=== PATIENT | male | born 2000 | race Caucasian/White ===

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

== ENCOUNTER 2020-03-20 18:52 | Emergency (ER) | payer OTHER ==
[~2020-03-20] VITALS: Ht 193 cm; Wt 177.0 kg
[~2020-03-20 18:52] MED LIST changes: +LOPE-39 PO
[2020-03-20] MEDS ORDERED: CETI-24 (18:58)
[2020-03-20] MEDS ORDERED: SERT50TA29 (18:58)
[2020-03-20] MEDS ORDERED: diphenhydrAMINE 50MG/ML VIAL (J1200) IV STA (19:21)
[2020-03-20] MEDS ORDERED: NS 1,000 ML IV ONE (19:30)
[2020-03-20] MEDS ORDERED: KETOROLAC 30 MG/ML 1ML VIAL IV ONE (19:30)
[2020-03-20] MEDS ORDERED: METOCLOPRAMIDE INJ 10MG/2ML VIAL (J2765 PER 1) IV ONE (19:30)
[2020-03-20 20:00] LABS: BASO % 0.5 % (0.0-1.0); EOS # 0.2 10^3/uL (0.0-0.5); HEMATOCRIT 43.3 % (42.0-52.0); HEMOGLOBIN 14.6 g/dl (13.5-17.5); LYMPH # 1.6 10^3/uL (1.5-5.0); LYMPH % 24.8 % (24.0-44.0); MEAN CORPUSCULAR HEMOGLOBIN 27.5 pg (27.0-33.0); MEAN CORPUSCULAR HGB CONC 33.7 g/dl (32.0-36.5); MEAN CORPUSCULAR VOLUME 81.5 fl (80.0-96.0); MONO # 1.2 10^3/uL (0.0-0.8); NEUTROPHILS # 3.3 10^3/uL (1.5-8.5); NEUTROPHILS % 52.4 % (36.0-66.0); PLATELET COUNT, AUTOMATED 297 10^3/uL (150-450); RED BLOOD COUNT 5.31 10^6/uL (4.30-6.10); WHITE BLOOD COUNT 6.3 10^3/uL (4.0-10.0)
[2020-03-20] MEDS ORDERED: NAPR-837 PO (21:01)
[2020-03-20 21:14] VITALS: BP 122/56
== END 2020-03-20 21:28 | disposition home or self-care (01) ==
LOC: M ED 18:52
DX: R51.9 Headache, unspecified (principal); F17.200 Nicotine dependence, unspecified, uncomplicated; Z79.899 Other long term (current) drug therapy
CPT/HCPCS: 80047; 85025; 96374; 96375; 99284; J1200; J1885; J2765

== ENCOUNTER 2022-05-03 19:47 | Emergency (ER) | payer OTHER ==
[~2022-05-03] VITALS: Ht 190.5 cm; Wt 186.4 kg
[~2022-05-03 19:47] MED LIST changes: +CETI-24; +NAPR-837 PO; +SERT50TA29
[2022-05-03 19:49] VITALS: BP 138/87
== END 2022-05-03 23:21 | disposition left against medical advice (07) ==
LOC: M ED 19:47
DX: Z53.21 Procedure and treatment not carried out due to patient leaving prior to being seen by health care provider (principal)

== ENCOUNTER → 2022-10-02 | Outpatient (REF) | payer MEDICAID, OTHER ==
[2022-10-02 13:52] LABS: ALBUMIN 3.4 G/DL (3.2-5.2); ALKALINE PHOSPHATASE 76 U/L (46-116); ALT/SGPT 23 U/L (7.0-40); AST/SGOT 15 U/L (<34); BILIRUBIN,TOTAL 0.3 MG/DL (0.3-1.2); BLOOD UREA NITROGEN 15 MG/DL (9-23); CALCIUM LEVEL 8.7 MG/DL (8.5-10.1); CARBON DIOXIDE LEVEL 26 MMOL/L (20-31); CHLORIDE LEVEL 108 MMOL/L (98-107); CHOLESTEROL LEVEL 74 MG/DL (<200); CHOLESTEROL RISK RATIO 2.42 (<5); CREATININE FOR GFR 0.99 MG/DL (0.70-1.30); GLOMERULAR FILTRATION RATE > 60.0 (>60); GLUCOSE, FASTING 79 MG/DL (60-100); HDL CHOLESTEROL 30.5 MG/DL (>40); LDL CHOLESTEROL 36.1 MG/DL (<100); NON-HDL-C 43.5 MG/DL; POTASSIUM SERUM 4.8 MMOL/L (3.5-5.1); SODIUM LEVEL 142 MMOL/L (136-145); TOTAL PROTEIN 6.6 G/DL (5.7-8.2); TRIGLYCERIDES LEVEL 37 MG/DL (<150)
[2022-10-02 14:18] LABS: HIV 1&2 SCREEN NEGATIVE (NEGATIVE)
[2022-10-02 14:24] LABS: HEPATITIS C VIRUS ABY INDEX 0.1 INDEX (<0.8)
== END ==
LOC: M LAB REF 12:16
PROVIDERS: ATTEND Family Medicine Addiction Medicine
DX: E66.3 Overweight (principal)